=== PATIENT | male | born 1990 | race Caucasian/White ===

== ENCOUNTER 2016-11-23 23:14 | Emergency (ER) | payer BC ==
[2016-11-24 00:16] LABS: CHLORIDE,CL 101 mmol/L (101-111); SODIUM,NA 138 mmol/L (135-145)
[2016-11-24] MEDS ORDERED: Colchicine 0.6 MG Tab PO ONE ×2 (00:24→00:48)
[2016-11-24] MEDS ORDERED: Ketorolac 30 MG/ML SDV IM ONE (00:31)
[2016-11-24] MEDS ORDERED: Colchicine 0.6 MG Tab ONE (00:48)
[2016-11-24] MEDS ORDERED: Indomethacin 25 MG Cap PO ONE (00:48)
[2016-11-24] MEDS ORDERED: Indomethacin 25 MG Cap ONE (00:48)
--- NOTE | 2016-11-24 00:48 | EDM.PDOC ---
ED HPI GENERAL MEDICAL PROBLEM - General Chief Complaint: Lower Extremity Injury/Pain Stated Complaint: GOUT FLARE UP Time Seen by Provider: 11/23/16 23:25 Source of Information: Reports: Patient, Family History Limitations: Reports: No Limitations - History of Present Illness INITIAL COMMENTS - FREE TEXT/NARRATIVE: c/o pain to right knee with swelling similar to previous gout flare up. Mother notes hx of gout, worse when eating larger amounts of smoked meats. Sx had improved but ate smoked meat over weekend. Patient had been trying ibuprofen but sx not improving. Has had good response and toleration of colchicine and indocin in past. Last use in June. No fever or chills. Increased pain with ambulation and flexion freater on medial and posterior right knee. Treatments NEGOTIATIONS DIRECTOR: Reports: NSAIDS Right Posterior Knee Pain Score (Numeric/FACES): 8 - Related Data Allergies Allergy/AdvReac Type Severity Reaction Status Date / Time erythromycin base Allergy Cannot Verified 11/23/16 23:31 Remember Home Meds: Home Meds Indomethacin [Indocin] 50 mg PO ASDIRECTED 11/08/15 [History] Albuterol [Proair HFA] 1 inhaler INH BID 11/23/16 [History] Colchicine [Colchicine] 0.6 mg PO BID 11/23/16 [History] Past Medical History Respiratory History: Reports: Asthma Musculoskeletal History: Reports: Gout - Infectious Disease History Infectious Disease History: Reports: Chicken Pox Social & Family History - Family History Family Medical History: Noncontributory - Tobacco Use Smoking Status *Q: Never Smoker Second Hand Smoke Exposure: No - Caffeine Use Caffeine Use: Reports: Coffee, Tea - Alcohol Use Date of Last Drink: 11/19/16 - Recreational Drug Use Recreational Drug Use: No Review of Systems - Review of Systems Review Of Systems: ROS reveals no pertinent complaints other than HPI. ED EXAM, GENERAL - Physical Exam Exam: See Below Exam Limited By: No Limitations General Appearance: Alert, Moderate Distress, Obese Eye Exam: Bilateral Eye: EOMI Ears: Normal External Exam Throat/Mouth: Normal Voice Head: Atraumatic, Normocephalic Neck: Normal Inspection, Full Range of Motion Respiratory/Chest: No Respiratory Distress Cardiovascular: Normal Peripheral Pulses, Regular Rate, Rhythm Extremities: Joint Swelling, Other (mild swelling right knee. No redness or warmth mild crepitus . Tender to palpation of medial aspect. Pain increase with flexion. ) Neurological: Alert, Oriented, Normal Cognition Psychiatric: Normal Affect, Normal Mood Skin Exam: Warm, Dry, Intact, Normal Color Course - Vital Signs Last Recorded V/S: Last Vital Signs Temp 97.3 F 11/24/16 01:02 Pulse 89 11/24/16 01:02 Resp 19 11/24/16 01:02 BP 139/67 11/24/16 01:02 Pulse Ox 94 L 11/24/16 01:02 - Orders/Labs/Meds Labs: Laboratory Tests 11/23/16 11/23/16 11/23/16 Range/Units 23:50 23:50 23:50 WBC 12.5 H (5.0-10.0) 10^3/uL RBC 5.27 (4.6-6.2) 10^6/uL Hgb 16.6 (14.0-18.0) g/dL Hct 48.1 (40.0-54.0) % MCV 91.3 (80-100) fL MCH 31.5 (27.0-34.0) pg MCHC 34.5 (33.0-35.0) g/dL Plt Count 240 (150-450) 10^3/uL Neut % (Auto) 60.1 (42.2-75.2) % Lymph % (Auto) 29.4 (20.5-50.1) % Graves % (Auto) 9.6 H (2-8) % Eos % (Auto) 0.7 L (1.0-3.0) % Baso % (Auto) 0.2 (0.0-1.0) % D-Dimer, Quantitative 122 (0-400) ng/mL Sodium 138 (135-145) mmol/L Potassium 4.2 (3.6-5.0) mmol/L Chloride 101 (101-111) mmol/L Carbon Dioxide 25.0 (21.0-31.0) mmol/L Anion Gap 16.2 BUN 17 (7-18) mg/dL Creatinine 1.2 (0.6-1.3) mg/dL Est Cr Clr Drug Dosing TNP Estimated GFR (MDRD) > 60 BUN/Creatinine Ratio 14.16 Glucose 91 (74-105) mg/dL Uric Acid 10.3 H (2.6-7.2) mg/dL Calcium 9.3 (8.4-10.2) mg/dl Total Bilirubin 1.0 (0.2-1.0) mg/dL AST 20 (10-42) IU/L ALT 33 (10-60) IU/L Alkaline Phosphatase 47 (42-121) IU/L Total Protein 7.9 (6.7-8.2) g/dl Albumin 4.3 (3.2-5.5) g/dl Globulin 3.6 Albumin/Globulin Ratio 1.19 Meds: Medications Discontinued Medications Generic Name Dose Route Start Last Admin Trade Name Berenice PRN Reason Stop Dose Admin Colchicine 1.2 mg 11/24/16 00:24 11/24/16 00:39 Colcrys PO 11/24/16 00:25 1.2 mg ONETIME ONE Administration Colchicine Confirm 11/24/16 00:48 11/24/16 00:55 Colcrys Administered 11/24/16 00:49 Not Given Dose 0.6 mg .ROUTE .STK-MED ONE Indomethacin Confirm 11/24/16 00:48 11/24/16 00:55 Indocin Administered 11/24/16 00:49 Not Given Dose 50 mg .ROUTE .STK-MED ONE Ketorolac Tromethamine 60 mg 11/24/16 00:31 11/24/16 00:39 Toradol IM 11/24/16 00:32 60 mg ONETIME ONE Administration Oxycodone/Acetaminophen 1 tab 11/24/16 00:54 11/24/16 00:58 Percocet 325-5 Mg PO 11/24/16 00:55 1 tab ONETIME ONE Administration Departure - Departure Time of Disposition: 00:44 Disposition: Home, Self-Care 01 Condition: Good Clinical Impression: Gout attack Qualifiers: Gout site: knee Gout etiology: unspecified cause Laterality: right Qualified Code(s): M10.9 - Gout, unspecified - Discharge Information Instructions: Gout, [id number] Referrals: Basil Caruso NP [Primary Care Provider] - Forms: ED Department Discharge Additional Instructions: indomethacin 25mg every 8 hours as needed colchicine .6mg one time at 130 follow up with primary care Tuesday if not improving F/u to discuss therapy for recurrent gout attacks increase fluids
[2016-11-24] MEDS ORDERED: Acetaminophen/oxyCODONE 325-5 MG Tab PO ONE (00:54)
[2016-11-24 01:07] VITALS: BP 139/67
== END 2016-11-24 01:02 | disposition home or self-care (01) ==
LOC: DL.ED 23:14
DX: M10.9 Gout, unspecified (principal); J45.909 Unspecified asthma, uncomplicated; Z88.1 Allergy status to other antibiotic agents
CPT/HCPCS: 36415; 73560; 80053; 84550; 85025; 85379; 96372; 99283; A9270; J1885

== ENCOUNTER 2017-10-16 19:01 | Emergency (ER) | payer BC ==
[2017-10-16 19:08] VITALS: BP 155/99
[2017-10-16] MEDS ORDERED: Ketorolac 30 MG/ML SDV IM ONE (19:20)
--- NOTE | 2017-10-16 19:27 | EDM.PDOC ---
ED HPI GENERAL MEDICAL PROBLEM - General Chief Complaint: Back Pain or Injury Stated Complaint: BACK SPASMS [id number] Time Seen by Provider: 10/16/17 19:15 Source of Information: Reports: Patient History Limitations: Reports: No Limitations - History of Present Illness INITIAL COMMENTS - FREE TEXT/NARRATIVE: This 27 yo male patient reports to the ED with back pain and spasms. The patient reports his symptoms started at 0630 this morning and have continued throughout the day. The patient reports that this morning the dog jumped on the bed and he twisted. Soon after that incident, the patient started to have increased symptoms. The patient has taken ibuprofen 2 times today (last dose was at 1400) with little to no symptom relief. Onset: Today Onset Date: 10/16/17 Onset Time: 06:30 Duration: Constant Location: Reports: Back (right lateral lower back) Quality: Reports: Ache, Sharp, Stabbing Severity: Severe Improves with: Reports: None Worsens with: Reports: None Context: Reports: Other Associated Symptoms: Reports: No Other Symptoms Treatments DIRECTOR CASE MANAGEMENT: Reports: NSAIDS Middle Back Pain Score (Numeric/FACES): 9 - Related Data Allergies Allergy/AdvReac Type Severity Reaction Status Date / Time erythromycin base Allergy Cannot Verified 11/23/16 23:31 Remember Home Meds: Home Meds Indomethacin [Indocin] 50 mg PO ASDIRECTED 11/08/15 [History] Albuterol [Proair HFA] 1 inhaler INH BID 11/23/16 [History] Colchicine 0.6 mg PO BID 11/23/16 [History] Past Medical History - Past Health History Medical/Surgical History: Denies Medical/Surgical History Respiratory History: Reports: Asthma Musculoskeletal History: Reports: Gout - Infectious Disease History Infectious Disease History: Reports: Chicken Pox Social & Family History - Family History Family Medical History: Noncontributory - Tobacco Use Smoking Status *Q: Unknown Ever Smoked - Caffeine Use Caffeine Use: Reports: Soda - Recreational Drug Use Recreational Drug Use: No ED ROS GENERAL - Review of Systems Review Of Systems: ROS reveals no pertinent complaints other than HPI. ED EXAM,LOWER BACK PAIN/INJURY - Physical Exam Exam: See Below Exam Limited By: No Limitations General Appearance: Alert, WD/WN, Moderate Distress, Obese Eye Exam: Bilateral Eye: EOMI, Normal Inspection, PERRL Ears: Normal External Exam, Normal Canal, Hearing Grossly Normal, Normal TMs Nose: Normal Inspection, Normal Mucosa, No Blood Throat/Mouth: Normal Inspection, Normal Lips, Normal Teeth, Normal Gums, Normal Oropharynx, Normal Voice, No Airway Compromise Head: Atraumatic, Normocephalic Neck: Normal Inspection, Supple, Non-Tender, Full Range of Motion Respiratory/Chest: No Respiratory Distress, Lungs Clear, Normal Breath Sounds, No Accessory Muscle Use, Chest Non-Tender Cardiovascular: Normal Peripheral Pulses, Regular Rate, Rhythm, No Edema, No Gallop, No JVD, No Murmur, No Rub GI/Abdominal: Normal Bowel Sounds, Soft, Non-Tender, No Organomegaly, No Distention, No Abnormal Bruit, No Mass (Male) Exam: Deferred Rectal (Males) Exam: Deferred Back Exam: Decreased Range of Motion (due to pain and spasm), Muscle Spasm, Paraspinal Tenderness (right sided) Extremities: Normal Inspection, Normal Range of Motion, Non-Tender, No Pedal Edema, Normal Capillary Refill Neurological: Alert, Normal Mood/Affect, Normal Dorsiflexion, CN II-XII Intact, Normal Plantar Flexion, Normal Gait, Normal Reflexes, No Motor/Sensory Deficits , Oriented x 3 Psychiatric: Normal Affect, Normal Mood Skin Exam: Warm, Dry, Intact, Normal Color, No Rash Lymphatic: No Adenopathy Course - Vital Signs Last Recorded V/S: Last Vital Signs Temp 36.4 C 10/16/17 19:06 Pulse 103 H 10/16/17 19:06 Resp 20 10/16/17 19:06 BP 155/99 H 10/16/17 19:06 Pulse Ox 100 10/16/17 19:06 - Orders/Labs/Meds Orders: Active Orders 24 hr Category Date Time Status Orphenadrine [Norflex] Med 10/16/17 19:30 Ordered 60 mg IM Q12H Medication Orders Orphenadrine Citrate (Norflex) 60 mg IM Q12H [facility] Meds: Medications Generic Name Dose Route Start Last Admin Trade Name Freq PRN Reason Stop Dose Admin Orphenadrine Citrate 60 mg 10/16/17 19:30 Norflex IM Q12H [facility]OSSI Discontinued Medications Generic Name Dose Route Start Last Admin Trade Name Freq PRN Reason Stop Dose Admin Ketorolac Tromethamine 60 mg 10/16/17 19:20 Toradol IM 06/10/18 19:21 ONETIME ONE Departure - Departure Time of Disposition: 19:27 Disposition: Home, Self-Care 01 Condition: Fair Clinical Impression: Muscle spasm of back Low back pain Qualifiers: Chronicity: acute Back pain laterality: right Sciatica presence: without sciatica Qualified Code(s): M54.5 - Low back pain - Discharge Information Instructions: Back Pain, Adult, [id number], Muscle Cramps and Spasms, Easy-to -Read Care Plan Goals: The patient was advised of the examination results during the visit. The patient was given injections of Toradol and Norflex while in the ED. The patient was discharged with a script for Toradol (10 mg) #20 to take 1 by mouth every 6 hours and Flexeril (10 mg) #10 to take 1 by mouth at bedtime as needed. If the patient has any additional symptoms or concerns, the patient should follow-up with his primary care facility or return to the emergency department. - My Orders Last 24 Hours: My Active Orders 10/16/17 19:30 Orphenadrine [Norflex] 60 mg IM Q12H - Assessment/Plan Last 24 Hours: My Active Orders 10/16/17 19:30 Orphenadrine [Norflex] 60 mg IM Q12H
== END 2017-10-16 19:48 | disposition home or self-care (01) ==
LOC: DL.ED 19:01
DX: M62.830 Muscle spasm of back (principal); Z88.1 Allergy status to other antibiotic agents; Z79.899 Other long term (current) drug therapy
CPT/HCPCS: 96372; 99283; J1885; J2360

== ENCOUNTER 2021-02-08 01:59 | Emergency (ER) | payer BC, OTHER ==
[2021-02-08 02:20] VITALS: BP 132/96; PULSE 102
--- NOTE | 2021-02-08 03:07 | EDM.PDOC ---
ED HPI GENERAL MEDICAL PROBLEM - General Chief Complaint: Upper Extremity Injury/Pain Stated Complaint: RIGHT SHOULDER, NO COMFORT AT ALL Time Seen by Provider: 02/08/21 03:07 Source of Information: Reports: Patient, RN, RN Notes Reviewed History Limitations: Reports: No Limitations - History of Present Illness INITIAL COMMENTS - FREE TEXT/NARRATIVE: Patient is a 30-year-old male who presents to ER with complaint of right shoulder/neck pain that began on Tuesday. He states it began as an ache, and has progressively gotten worse. Patient rates the pain a 10/10. Patient states he does feel this is muscular and not bone or joint. He denies any recent injury, lifting, pulling, falling. Patient states he does have a history of gout, takes indomethacin on a daily basis. Patient states he feels he has gout in his left ankle at this time as well. Onset: Gradual Right Shoulder Pain Score (Numeric/FACES): 8 - Related Data Allergies Allergy/AdvReac Type Severity Reaction Status Date / Time erythromycin base Allergy Cannot Verified 11/23/16 23:31 Remember Home Meds: Home Meds Indomethacin [Indocin] 50 mg PO ASDIRECTED 11/08/15 [History] Albuterol [Proair HFA] 1 inhaler INH BID 11/23/16 [History] Colchicine 0.6 mg PO BID 11/23/16 [History] Past Medical History - Past Health History Medical/Surgical History: Denies Medical/Surgical History HEENT History: Reports: None Cardiovascular History: Reports: None Respiratory History: Reports: Asthma Gastrointestinal History: Reports: None Genitourinary History: Reports: None Musculoskeletal History: Reports: Gout Neurological History: Reports: None Endocrine/Metabolic History: Reports: None Dermatologic History: Reports: None - Infectious Disease History Infectious Disease History: Reports: Chicken Pox Social & Family History - Family History Family Medical History: No Pertinent Family History - Tobacco Use Tobacco Use Status *Q: Never Tobacco User Second Hand Smoke Exposure: No - Caffeine Use Caffeine Use: Reports: None - Recreational Drug Use Recreational Drug Use: No Review of Systems - Review of Systems Review Of Systems: Comprehensive ROS is negative, except as noted in HPI. ED EXAM, GENERAL - Physical Exam Exam: See Below Exam Limited By: No Limitations General Appearance: Alert, WD/WN, Moderate Distress Eye Exam: Bilateral Eye: EOMI, Normal Inspection Ears: Normal External Exam, Hearing Grossly Normal Nose: Normal Inspection Throat/Mouth: Normal Inspection, Normal Lips, Normal Teeth, Normal Gums, Normal Oropharynx, Normal Voice, No Airway Compromise Head: Atraumatic, Normocephalic Neck: Normal Inspection, Supple, Non-Tender, Full Range of Motion Respiratory/Chest: No Respiratory Distress, Lungs Clear, Normal Breath Sounds, No Accessory Muscle Use, Chest Non-Tender Cardiovascular: Normal Peripheral Pulses, Regular Rate, Rhythm, No Edema, No Gallop, No JVD, No Murmur, No Rub Peripheral Pulses: 2+: Radial (L), Radial (R) GI/Abdominal: Normal Bowel Sounds, Soft, Non-Tender (Male) Exam: Deferred Rectal (Males) Exam: Deferred Back Exam: Normal Inspection, Full Range of Motion, NT Extremities: Limited Range of Motion (right shoulder), Other (left ankle pain, no erythema or swelling) Neurological: Alert, Oriented, CN II-XII Intact, Normal Cognition, Normal Gait, Normal Reflexes, No Motor/Sensory Deficits Psychiatric: Normal Affect, Normal Mood Skin Exam: Warm, Dry, Intact, Normal Color, No Rash Lymphatic: No Adenopathy Course - Vital Signs Last Recorded V/S: Last Vital Signs Temp 99.3 F 02/08/21 02:16 Pulse 102 H 02/08/21 02:16 Resp 20 02/08/21 02:16 BP 132/96 H 02/08/21 02:16 Pulse Ox 96 02/08/21 02:16 - Orders/Labs/Meds Labs: Laboratory Tests 02/08/21 Range/Units 03:20 Uric Acid 5.9 (3.5-7.2) mg/dL Meds: Medications Discontinued Medications Generic Name Dose Route Start Last Admin Trade Name Freq PRN Reason Stop Dose Admin Ketorolac Tromethamine 30 mg 02/08/21 03:12 02/08/21 03:24 Ketorolac 30 Mg/Ml Sdv IM 02/08/21 03:13 30 mg ONETIME ONE Administration Orphenadrine Citrate 60 mg 02/08/21 03:12 02/08/21 03:25 Orphenadrine 60 Mg/2 Ml Inj IM 02/08/21 03:13 60 mg ONETIME ONE Administration Departure - Departure Time of Disposition: 03:53 Disposition: Home, Self-Care 01 Condition: Good Clinical Impression: Muscle spasm Right shoulder pain Qualifiers: Chronicity: acute Qualified Code(s): M25.511 - Pain in right shoulder - Discharge Information *PRESCRIPTION DRUG MONITORING PROGRAM REVIEWED*: No *COPY OF PRESCRIPTION DRUG MONITORING REPORT IN PATIENT ORTIZ: No Instructions: Muscle Cramps and Spasms, [id number], Shoulder Pain, [id number] Forms: ED Department Discharge Additional Instructions: Rx: Cyclobenzaprine 10 mg 1 orally 3 times daily as needed for muscle spasm Use ibuprofen sparingly while on indomethacin May use Tylenol as directed for pain Alternate heat and ice to the area Follow-up with your primary care provider if no improvement Sepsis Event Note (ED) - Evaluation Sepsis Screening Result: No Definite Risk - Focused Exam Vital Signs: Vital Signs Temp Pulse Resp BP Pulse Ox 02/08/21 02:16 99.3 F 102 H 20 132/96 H 96
[2021-02-08] MEDS ORDERED: Orphenadrine 60 MG/2 ML Inj IM ONE (03:12)
[2021-02-08] MEDS ORDERED: Ketorolac 30 MG/ML SDV IM ONE (03:12)
== END 2021-02-08 03:58 | disposition home or self-care (01) ==
LOC: DL.ED 01:59
DX: M25.511 Pain in right shoulder (principal); M62.838 Other muscle spasm; M25.572 Pain in left ankle and joints of left foot; J45.909 Unspecified asthma, uncomplicated; Z88.1 Allergy status to other antibiotic agents; Z79.899 Other long term (current) drug therapy
CPT/HCPCS: 36415; 84550; 96372; 99283; J1885; J2360

== ENCOUNTER 2022-01-11 06:32 | Emergency (ER) | payer OTHER ==
[2022-01-11] MEDS ORDERED: Colchicine 0.6 MG Tab PO ONE ×2 (06:33→09:26)
[2022-01-11] MEDS ORDERED: Acetaminophen/HYDROcodone 325-10 MG Tab PO ONE (06:33)
[2022-01-11 07:22] VITALS: BP 130/95; PULSE 89
[2022-01-11 08:54] LABS: ANION GAP 16.3 mEq/L (7-13)
[2022-01-11] MEDS ORDERED: Ondansetron 4 MG Tab.DIS PO ONE (09:26)
[2022-01-11] MEDS ORDERED: methylPREDNISolone Sodium Succinate 125 MG/2 ML SDV IM ONE (09:26)
[2022-01-11] MEDS ORDERED: Colchicine 0.6 MG Tab ONE (09:54)
[2022-01-11] MEDS ORDERED: Acetaminophen/HYDROcodone 325-10 MG Tab ONE (09:59)
[2022-01-11] MEDS: HYDROmorphone 1 MG/ML Syringe IM ONE ×2 (10:22→15:59)
[2022-01-11] MEDS ORDERED: HYDROmorphone 1 MG/ML Syringe IVPUSH ONE (12:00)
== END 2022-01-11 10:30 | disposition home or self-care (01) ==
LOC: DL.ED 06:32
DX: M10.9 Gout, unspecified (principal); Z88.1 Allergy status to other antibiotic agents
CPT/HCPCS: 36415; 80053; 84550; 85025; 86140; 96372; 96374; 99283; A9270; J1170; J2930; 99284